=== PATIENT | female | born 1975 | race Caucasian/White ===

== ENCOUNTER → 2023-09-07 10:45 | Outpatient (BNV) | payer OTHER, SELFPAY | PROVIDERS: Visit Provider Psychiatry & Neurology Psychiatry | DX: F33.2 Major depressive disorder, recurrent severe without psychotic features (principal); F41.1 Generalized anxiety disorder; F43.10 Post-traumatic stress disorder, unspecified | CPT/HCPCS: 90792; 90832; 99213; 99214 ==

== ENCOUNTER 2023-10-02 12:30 | Outpatient (RCR) | payer OTHER, SELFPAY ==
[2023-09-07 14:08] VITALS: BP 132/86; PULSE 69; RESP 12; TEMP 36.9
--- NOTE | 2023-09-07 14:43 | PC.NURSE ---
Pt is a 48 y/o female, recently referred by PCP from [facility] for increased depression and anxiety. Pt states symptoms increased after recent of friend/ co-worker in Jul 2023. Pt denies thoughts of SI, denies plan or intent, and states mood improved since starting program. Safety plan reviewed and copy provided. Per integrative assessment pt history of depression, anxiety, PTSD. Pt is alert and oriented x 4, anxious, attentive, cooperative and engaging. Medications reconciled with pharmacy and patient, pt reports taking medications as prescribed. Support system is her 3 children and close friends.
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
--- NOTE | 2023-09-13 08:35 | HO.PHP ---
Gisell spoke to [facility] administrative staff, Yuly, in which Gisell informed Yuly she will not be in attendance to program today. Gisell mentioned she is safe and will be in attendance tomorrow.
--- NOTE | 2023-09-13 14:40 | HO.PHP ---
The client's case was reviewed and opened in treatment team.
--- NOTE | 2023-09-13 17:28 | HO.PHP ---
[facility] staff member followed up with Gisell due to her calling out. Gisell disclosed that she is feeling much better that she had the day and it ended up being productive. Gisell shared how she went [place] shopping with a friend and her husbands Aunt from [place] had come to visit as well. [facility] staff member was receptive. PHP staff member explored if Gisell would be returning to program tomorrow. Gisell voiced that she probably won't be returning to program tomorrow because that situation triggered her. Gisell disclosed she plans on returning on Sunday. [facility] staff member assessed for safety concerns. Gisell disclosed no safety concerns or SI,plan or intent. Gisell will be in on Sunday.
--- NOTE | 2023-09-21 12:44 | HO.PHPPROGNO ---
Subjective Subjective Date of Service: 09/21/23 Reason For Visit: PTSD, Interim History: Patient reports she didn't come for 3 days so she is expecting to get extra time next week. She feels she notices a diffcerence with the medicaitons. Mood is much improved and has been able to function and attend to responsibilities and daily tasks. She reports her overall depression severity at a 2 out of 10, down from a 10 out of 10 in severity upon admission. Still getting anxious at times. Continues on Zoloft 50 mg and Risperdal 0.25 mg qhs. She denies any adverse effects. Denies any stiffness in jaw, mouth, neck, shoulders. Denies difficulties swallowing or tics or tremors. ROS negative. Energy and appetite improving. Sleep is mostly good, sometimes she still experiences flashbacks and nightmares, even though this considerably improved with Risperdal. She is anticipating the anniversary of the of her to suicide on 09/28. She denies any hopelessness or SI. In fact she shares that it often angers her when she hears peers reports having SI, it is very triggering to her and expresses her dismay that they would consider doing this to their family and loved ones. She also talks about her job at [employer] and is scheduled to go back to work and the end of September. 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 She denies any alcohol or substance use. She is agreeable to increasing the dose to a full tablet of Risperdal at 0.5 mg. 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 More likely, in time, patient could talk to outpatient provider about transitioning to PRN dosing with the Risperdal. Medication Compliance: Yes Side effects from medications: No Attending Groups: Yes Review of Systems Acute medical concerns: No Mental Status Exam Mental Status Exam Narrative: Alert, oriented, in no acute distress. Groomed.?Cooperative, forthcoming. No tics/tremors/dyskinesia, no psychomotor agitation or retardation. Mood depressed. Affect blunted, less tearful.? Speech more variable. No latency or pressured speech. Thought process is scattered, ruminative without illogicality or FOI/SUNG. Thought content relevant to stressors, more future-oriented, without SI, intention, urge or plan. No thoughts of harming self or others. No evidence of psychosis. Cognition grossly intact. Sensorium clear. Insight fair. Judgment fair/good. Assessment & Plan Assessment & Plan (1) Major depressive disorder, recurrent severe without psychotic features: Status: Acute Code(s): F33.2 - Major depressive disorder, recurrent severe without psychotic features (2) Generalized anxiety disorder: Status: Acute Code(s): F41.1 - Generalized anxiety disorder (3) Post traumatic stress disorder: Status: Acute Code(s): F43.10 - Post-traumatic stress disorder, unspecified Plan increase Risperdal to 0.5 mg QHS continue other medicaitons continue to monitor Patient educated on: diagnosis and medication risk/benefits Informed Consent: understands Reason for contiued partial hosp. stay Substantial Risk for: inability to function, rapid decompensation and med/psych decompensation Certification I certify that partial hospital treatment is medically necessary due to the symptoms and problems resulting from the patient's mental illness and the failure to treat the patient at the partial hospital level of care would likely result in the patient requiring inpatient psychiatric care which could not be prevented at a less intensive level of care. Total time managing care of this patient today __30__ minutes. Discharge Plan Discharge Attending provider: iGsselle Bone Additional Instructions: Gisell currently has an OP therapist, Charli Sarabia, in which he next scheduled appointment is on September 27, 2023 at 12 PM. Gisell also has her PCP, Dr. Urbano, prescribe her medication, in which her next appointment is October 04, 2023 at 10 AM. Medications: New risperidone 0.25 mg tablet See Rx Instructions .ROUTE .COMPLEX Qty: 30 0RF Rx Instructions: take one tablet po daily at bedtime; take one tablet po qd PRN agitation Continued omeprazole 20 mg capsule,delayed release(DR/EC) 20 mg PO DAILY sertraline [Zoloft] 50 mg tablet 50 mg PO 1XD metoprolol succinate 25 mg Tablet Extended Release 24 Hr 25 mg PO DAILY Patient Comments: Patient completed medication update form and added above mentioned medication. Stand Alone Forms: Patient Portal Discharge page Patient Education: Depression (DC)
--- NOTE | 2023-09-27 11:35 | HO.PHP ---
[facility] staff member followed up with Gisell after group 3 due to her being triggered. Gisell disclosed that she is doing better now and is hoping that she helped that individual recognize they need to get support if they are struggling. Gisell talked about how her children are negatively impacted due to their father completing SI. [facility] staff member provided resources around grief groups. Gisell also talked about EAP services, in which [facility] staff member provided psycho-education and suggested finding a therapist in private practice that may be longer term since that is a concern that she or her children will lose their therapist after opening up. Gisell appeared receptive. Gisell was able to regulate and expressed no safety concerns. Gisell noted she will be in attendance to program tomorrow.
--- NOTE | 2023-09-27 21:06 | HO.PHPPROGNO ---
Subjective Subjective Date of Service: 09/27/23 Reason For Visit: PTSD, Interim History: Patient seen for follow-up. Reports having had an emotional breakdown during on the morning groups today. Said she was triggered in group by someone who shared that they were suicidal. She notes being especially triggered with tomorrow being anniversary of 's . She continues taking one tablet of Risperdal at night and has not needed to take any additional prns. She endorses some random flashbacks but says she has been managing them. She denies any hopelessness. She reports past week has been not bad . She is encouraged by the fact that she is doing well even despite anniversary this week. Mood is good. Anxiety I feel it coming on every once in a while, but no where near where it was before . Reports mood stablity improved from a 2 to a 7 out of 10. Denies adverse effects from ZOloft. Denies any panic attacks. She has an upcoming telehealth appointment with her PCP on 10/04. She has access to a psych provider at her PCP office should she need extra support with medications, otherwise PCP has been managing and this is her preference to conitue with Dr. Urbano. She also has a therapy appointment this week. Medication Compliance: Yes Side effects from medications: No Attending Groups: Yes Review of Systems Acute medical concerns: No Mental Status Exam Mental Status Exam Narrative: Alert, oriented, in no acute distress. Groomed.?Cooperative, forthcoming. No tics/tremors/dyskinesia, no psychomotor agitation or retardation. Mood improved, anxious. Affect brighter, residual lability.? Speech more variable. No latency or pressured speech. Thought process is linear, coherent, without illogicality or FOI/SUNG. Thought content relevant to stressors, future-oriented, without SI, intention, urge or plan. No thoughts of harming self or others. No evidence of psychosis. Cognition grossly intact. Sensorium clear. Insight fair. Judgment fair/good. Assessment & Plan Assessment & Plan (1) Major depressive disorder, recurrent severe without psychotic features: Status: Acute Code(s): F33.2 - Major depressive disorder, recurrent severe without psychotic features (2) Generalized anxiety disorder: Status: Acute Code(s): F41.1 - Generalized anxiety disorder (3) Post traumatic stress disorder: Status: Acute Code(s): F43.10 - Post-traumatic stress disorder, unspecified Plan continue treatment plan Patient educated on: diagnosis and medication risk/benefits Informed Consent: understands Reason for contiued partial hosp. stay Substantial Risk for: rapid decompensation and med/psych decompensation Certification I certify that partial hospital treatment is medically necessary due to the symptoms and problems resulting from the patient's mental illness and the failure to treat the patient at the partial hospital level of care would likely result in the patient requiring inpatient psychiatric care which could not be prevented at a less intensive level of care. Total time managing care of this patient today __30__ minutes. Discharge Plan Discharge Attending provider: Gisselle Bone Additional Instructions: Gisell currently has an OP therapist, Charli Sarabia, in which he next scheduled appointment is on September 27, 2023 at 12 PM. Gisell also has her PCP, Dr. Urbano, prescribe her medication, in which her next appointment is October 04, 2023 at 10 AM. Medications: New risperidone 0.25 mg tablet See Rx Instructions .ROUTE .COMPLEX Qty: 30 0RF Rx Instructions: take one tablet po daily at bedtime; take one tablet po qd PRN agitation Continued omeprazole 20 mg capsule,delayed release(DR/EC) 20 mg PO DAILY sertraline [Zoloft] 50 mg tablet 50 mg PO 1XD metoprolol succinate 25 mg Tablet Extended Release 24 Hr 25 mg PO DAILY Patient Comments: Patient completed medication update form and added above mentioned medication. Stand Alone Forms: Patient Portal Discharge page Patient Education: Depression (DC)
--- NOTE | 2023-10-02 23:12 | P.PNPSP_ITS ---
Subjective Subjective Date of Service: 10/02/23 Reason For Visit: PTSD, Interim History: Patient seen for follow-up, anticipating discharge at the end of program today.? Reports no acute issues or concerns. Medication compliant, medications well- tolerated. Denies any adverse effects. She has tolerated increase of sertraline to 75 mg as planned, will continue at that dose and will follow up with community provider for further titration if needed. She sees Dr. Urbano on 10/04 at 9:45am and therapist Charli Sarabia on 09/27 at 12pm. Mood is good , residual depressive thoughts still lingering, but moreso is just ruminating (memories) and denies feeling depressed. Denies any hopelessness or SI. Denies thoughts of harming self or others at this time. Denies any aggressive ideation or HI. Denies any paranoia or AH or VH. Sleep, appetite, energy stable. Medication Compliance: Yes Side effects from medications: No Attending Groups: Yes Review of Systems Acute medical concerns: No Mental Status Exam Mental Status Exam Narrative: Alert, oriented, in no acute distress. Groomed.?Cooperative, forthcoming. No tics/tremors/dyskinesia, no psychomotor agitation or retardation. Mood good . Affect variable, bright, without lability.? Speech more variable. No latency or pressured speech. Thought process is linear, coherent, without illogicality or FOI/SUNG. Thought content relevant to stressors, future-oriented, without SI, intention, urge or plan. No thoughts of harming self or others. No evidence of psychosis. Cognition grossly intact. Sensorium clear. Insight fair. Judgment fair/good. Assessment & Plan Assessment & Plan (1) Major depressive disorder, recurrent severe without psychotic features: Status: Acute Code(s): F33.2 - Major depressive disorder, recurrent severe without psychotic features (2) Generalized anxiety disorder: Status: Acute Code(s): F41.1 - Generalized anxiety disorder (3) Post traumatic stress disorder: Status: Acute Code(s): F43.10 - Post-traumatic stress disorder, unspecified Plan [facility]charge from [facility] Continue with current medication regime Will defer further medication management to outpatient provider Patient to continue treatment as per dispo plan Patient educated on: diagnosis and medication risk/benefits Informed Consent: understands Reason for contiued partial hosp. stay Substantial Risk for: stable for discharge Certification I certify that partial hospital treatment is medically necessary due to the symptoms and problems resulting from the patient's mental illness and the failure to treat the patient at the partial hospital level of care would likely result in the patient requiring inpatient psychiatric care which could not be prevented at a less intensive level of care. Total time managing care of this patient today __30__ minutes. Discharge Plan Discharge Attending provider: Gisselle Bone Additional Instructions: Gisell currently has an OP therapist, Charli Sarabia, in which he next scheduled appointment is on September 27, 2023 at 12 PM. Gisell also has her PCP, Dr. Urbano, prescribe her medication, in which her next appointment is October 04, 2023 at 10 AM. Medications: Continued omeprazole 20 mg capsule,delayed release(DR/EC) 20 mg PO DAILY metoprolol succinate 25 mg Tablet Extended Release 24 Hr 25 mg PO DAILY Patient Comments: Patient completed medication update form and added above mentioned medication. risperidone 0.25 mg tablet See Rx Instructions .ROUTE .COMPLEX 30 Days Qty: 30 0RF Rx Instructions: take one tablet po daily at bedtime; take one tablet po qd PRN agitation Changed sertraline [Zoloft] 50 mg tablet 75 mg PO DAILY 30 Days Qty: 45 0RF Stand Alone Forms: Patient Portal Discharge page Patient Education: Depression (DC)
== END 2023-10-02 23:59 | disposition home or self-care (01) ==
LOC: HO.PHPA 12:30
PROVIDERS: Visit Provider Psychiatry & Neurology Psychiatry
DX: F33.2 Major depressive disorder, recurrent severe without psychotic features (principal); F41.1 Generalized anxiety disorder; F43.10 Post-traumatic stress disorder, unspecified; Z79.899 Other long term (current) drug therapy
CPT/HCPCS: 90791; 90853